=== PATIENT | male | born 1940 | race Caucasian/White ===

== ENCOUNTER 2017-02-02 06:58 | Outpatient (CLI) | payer MEDICARE ==
[~2017-02-02 06:58] MED LIST: ALLO100T PO; ALT5C PO; DABI150C PO; HYDR12.522 PO; LOP25T PO; METF500T7 PO; MOME17SP; POTA10TA19 PO; TRAM50TA2 PO; ZOC40T PO
== END 2017-02-02 23:59 | disposition home or self-care (01) ==
LOC: DIABETIC 06:58
PROVIDERS: ATTEND Specialist
DX: E11.9 Type 2 diabetes mellitus without complications (principal); I10 Essential (primary) hypertension; F17.200 Nicotine dependence, unspecified, uncomplicated
CPT/HCPCS: G0108

== ENCOUNTER 2017-03-01 09:44 | Day surgery (SDC) | payer MEDICARE ==
[2017-02-24 16:16] LABS: BASOPHILS % (AUTO) 0.3 % (0-1); EOSINOPHILS # (AUTO) 0.2 X10'3 (0-0.9); EOSINOPHILS % (AUTO) 3.4 % (0-6); HEMATOCRIT 44.2 % (42.0-52.0); HEMOGLOBIN 14.7 g/dl (14.0-17.9); LYMPHOCYTES # (AUTO) 1.4 X10'3 (1.1-4.8); LYMPHOCYTES % (AUTO) 22.9 % (21-51); MEAN CORPUSCULAR HEMOGLOBIN 30.5 PG (27.0-31.0); MEAN CORPUSCULAR HGB CONC 33.2 % (33.0-36.5); MEAN CORPUSCULAR VOLUME 91.7 FL (78-98); MEAN PLATELET VOLUME 8.6 FL (7.4-10.4); MONOCYTES # (AUTO) 0.7 X10'3 (0-0.9); MONOCYTES % (AUTO) 10.5 % (2-12); NEUTROPHILS # (AUTO) 3.9 X10'3 (1.8-7.7); NEUTROPHILS % (AUTO) 62.9 % (42-75); PLATELET COUNT 278 X10'3 (140-440); RED BLOOD COUNT 4.81 X10'6 (4.70-6.10); RED CELL DISTRIBUTION WIDTH 15.7 % (11.5-14.5); WHITE BLOOD COUNT 6.2 X10'3 (4.5-11.0)
[2017-02-24 16:26] LABS: ALBUMIN 3.9 G/DL (3.4-5.0); ANION GAP 9 (8-16); BLOOD UREA NITROGEN 12 MG/DL (7-18); BUN/CREATININE RATIO 13.3 (5.4-32.0); CALCIUM 9.2 MG/DL (8.5-10.1); CHLORIDE 105 MMOL/L (99-107); GLUCOSE 123 MG/DL (70-104); POTASSIUM 3.9 MMOL/L (3.5-5.1); SODIUM 142 MMOL/L (135-145); TOTAL CARBON DIOXIDE 28.5 MMOL/L (24-32); eGFR 82 ML/MIN
[2017-02-24 16:31] LABS: INR 1.3 INR; PARTIAL THROMBOPLASTIN TIME 33 SECONDS (22-32)
[2017-03-01] VITALS (11 sets, daily range): BP systolic 135–197; BP diastolic 73–113
[~2017-03-01] VITALS: Ht 180.3 cm; Wt 108.4 kg
[2017-03-01] MEDS ORDERED: fentaNYL/PF 50MCG/1 ML 2ML syringe IV ONE (10:25)
[2017-03-01] MEDS ORDERED: MIDAZolam 1mg/ml 10ml vial IV ONE (10:25)
[2017-03-01] MEDS ORDERED: normal saline 1000ml 1,000 ML IV SCH (10:25)
[2017-03-01] MEDS ORDERED: ASPI-1265 PO (10:52)
[2017-03-01] MEDS ORDERED: METF10002 PO (10:52)
[2017-03-01] MEDS ORDERED: PRAV40TA3 PO (10:52)
[2017-03-01] MEDS ORDERED: LEVE500T PO (11:17)
== END 2017-03-01 15:38 | disposition home or self-care (01) ==
LOC: SSTAY O 09:44
PROVIDERS: ATTEND Internal Medicine Interventional Cardiology
DX: I48.2 Chronic atrial fibrillation (principal); Z86.73 Personal history of transient ischemic attack (TIA), and cerebral infarction without residual deficits; I10 Essential (primary) hypertension; E11.9 Type 2 diabetes mellitus without complications; E78.00 Pure hypercholesterolemia, unspecified; Z79.82 Long term (current) use of aspirin; G47.33 Obstructive sleep apnea (adult) (pediatric); Z79.899 Other long term (current) drug therapy; Z87.891 Personal history of nicotine dependence
CPT/HCPCS: 36415; 80048; 82948; 85025; 85610; 85730; 92960; 93005; J2250; J3010; J7030

== ENCOUNTER 2017-03-11 03:44 | Outpatient (CLI) | payer MEDICARE ==
[~2017-03-11 03:44] MED LIST changes: +ASPI-1265 PO; -HYDR12.522 PO; +LEVE500T PO; +METF10002 PO; -METF500T7 PO; -MOME17SP; -POTA10TA19 PO; +PRAV40TA3 PO; -ZOC40T PO
== END 2017-03-11 23:59 | disposition home or self-care (01) ==
LOC: DIABETIC 03:44
PROVIDERS: ATTEND Specialist
DX: E11.22 Type 2 diabetes mellitus with diabetic chronic kidney disease (principal); I12.9 Hypertensive chronic kidney disease with stage 1 through stage 4 chronic kidney disease, or unspecified chronic kidney disease; N18.9 Chronic kidney disease, unspecified; F17.200 Nicotine dependence, unspecified, uncomplicated
CPT/HCPCS: G0108

== ENCOUNTER 2017-06-03 04:35 | Outpatient (CLI) | payer MEDICARE ==
[~2017-06-03 04:35] MED LIST changes: -ALT5C PO; +RAMI5CAP PO
== END 2017-06-03 23:59 | disposition home or self-care (01) ==
LOC: DIABETIC 04:35
PROVIDERS: ATTEND Specialist
DX: E11.9 Type 2 diabetes mellitus without complications (principal); I10 Essential (primary) hypertension; Z87.891 Personal history of nicotine dependence
CPT/HCPCS: G0108

== ENCOUNTER 2017-11-09 02:14 | Outpatient (CLI) | payer MEDICARE ==
[~2017-11-09 02:14] MED LIST changes: +METF-438 PO; -METF10002 PO; -RAMI5CAP PO; +RAMI5CAP65 PO
== END 2017-11-09 23:59 | disposition home or self-care (01) ==
LOC: DIABETIC 02:14
PROVIDERS: ATTEND Specialist
DX: E11.9 Type 2 diabetes mellitus without complications (principal); I10 Essential (primary) hypertension; Z79.82 Long term (current) use of aspirin; Z79.84 Long term (current) use of oral hypoglycemic drugs; Z88.8 Allergy status to other drugs, medicaments and biological substances; Z79.899 Other long term (current) drug therapy; Z96.643 Presence of artificial hip joint, bilateral; Z87.891 Personal history of nicotine dependence
CPT/HCPCS: G0108

== ENCOUNTER 2018-05-31 01:49 | Outpatient (CLI) | payer MEDICARE | END 2018-05-31 23:59 | disposition home or self-care (01) | LOC: DIABETIC 01:49 | PROVIDERS: ATTEND Specialist | DX: E11.9 Type 2 diabetes mellitus without complications (principal); I10 Essential (primary) hypertension; Z79.84 Long term (current) use of oral hypoglycemic drugs; Z79.82 Long term (current) use of aspirin; Z88.8 Allergy status to other drugs, medicaments and biological substances; Z96.643 Presence of artificial hip joint, bilateral | CPT/HCPCS: G0108 ==